=== PATIENT | male | born 1995 | race Caucasian/White ===

== ENCOUNTER 2019-04-16 12:50 | Emergency (ER) | payer MEDICAID, OTHER ==
[~2019-04-16] VITALS: Ht 182.9 cm; Wt 68.2 kg
--- NOTE | 2019-04-16 13:08 | NUR ---
OFFICER MARIJA FROM [facility] AT BEDSIDE.
[2019-04-16] MEDS ORDERED: lidocaine 1%/epinephrine 1:100,000 injection 50ml vial ONE (14:00)
[2019-04-16] MEDS ORDERED: TETanus/Pertussis (Acell)/Diphther VAC/PF (Tdap-Adult) 0.5ml syringe IM ONE (14:10)
--- NOTE | 2019-04-16 14:18 | NUR ---
MONET GIMENEZ MADE AWARE PATIENT HAD TETANUS VACCINE <5 YEARS AGO.
[2019-04-16 15:56] VITALS: BP 132/73
== END 2019-04-16 15:57 | disposition home or self-care (01) ==
LOC: ER 12:50
DX: S01.81XA Laceration without foreign body of other part of head, initial encounter (principal); S01.112A Laceration without foreign body of left eyelid and periocular area, initial encounter; S60.417A Abrasion of left little finger, initial encounter; S60.312A Abrasion of left thumb, initial encounter; S60.411A Abrasion of left index finger, initial encounter; S50.311A Abrasion of right elbow, initial encounter; F31.9 Bipolar disorder, unspecified; F12.90 Cannabis use, unspecified, uncomplicated; S40.212A Abrasion of left shoulder, initial encounter; V23.4XXA Motorcycle driver injured in collision with car, pick-up truck or van in traffic accident, initial encounter; Y93.89 Activity, other specified; Y92.488 Other paved roadways as the place of occurrence of the external cause; Y99.8 Other external cause status
CPT/HCPCS: 12015; 99284

== ENCOUNTER 2019-05-09 14:36 | Emergency (ER) | payer MEDICAID, OTHER ==
[~2019-05-09] VITALS: Ht 182.9 cm; Wt 70.0 kg
[2019-05-09 14:55] VITALS: BP 126/78
== END 2019-05-09 15:24 | disposition home or self-care (01) ==
LOC: ER 14:37
DX: S89.82XA Other specified injuries of left lower leg, initial encounter (principal); Z02.79 Encounter for issue of other medical certificate; F31.9 Bipolar disorder, unspecified; F12.90 Cannabis use, unspecified, uncomplicated; V09.9XXA Pedestrian injured in unspecified transport accident, initial encounter; Y93.23 Activity, snow (alpine) (downhill) skiing, snowboarding, sledding, tobogganing and snow tubing; Y92.89 Other specified places as the place of occurrence of the external cause; Y99.8 Other external cause status
CPT/HCPCS: 99281

== ENCOUNTER 2020-03-16 14:42 | Emergency (ER) | payer MEDICAID ==
[~2020-03-16] VITALS: Ht 182.9 cm; Wt 80.0 kg
[2020-03-16 15:30] VITALS: BP 114/68
[2020-03-16] MEDS ORDERED: PENI250T2 PO (15:31)
[2020-03-16] MEDS ORDERED: NAPR-56 PO (15:31)
[2020-03-16 15:32] VITALS: BP 111/79
== END 2020-03-16 15:53 | disposition home or self-care (01) ==
LOC: ER 14:42
DX: K08.89 Other specified disorders of teeth and supporting structures (principal); F31.9 Bipolar disorder, unspecified; F12.90 Cannabis use, unspecified, uncomplicated; Z72.89 Other problems related to lifestyle; Z79.899 Other long term (current) drug therapy
CPT/HCPCS: 99283

== ENCOUNTER 2021-11-19 18:26 | Emergency (ER) | payer MEDICAID ==
[~2021-11-19] VITALS: Ht 182.9 cm; Wt 78.3 kg
[2021-11-19 18:42] VITALS: BP 118/84
== END 2021-11-19 20:33 | disposition left against medical advice (07) ==
LOC: ER 18:26
DX: K04.7 Periapical abscess without sinus (principal); Z53.21 Procedure and treatment not carried out due to patient leaving prior to being seen by health care provider